=== PATIENT | female | born 1960 | race Caucasian/White ===

== ENCOUNTER 2018-05-18 09:14 | Emergency (ER) | payer MEDICARE, MEDICAID ==
[2018-05-18 09:40] VITALS: BP 106/45
--- NOTE | 2018-05-18 10:02 | EDM.PDOC ---
ED HPI GENERAL MEDICAL PROBLEM - General Chief Complaint: Skin Complaint Stated Complaint: POSSIBLE ALLERGIC REACTION Time Seen by Provider: 05/18/18 09:45 Source of Information: Reports: Patient, Family, Old Records History Limitations: Reports: Other (Patient has Down's syndrome, minimally able to provide hx) - History of Present Illness INITIAL COMMENTS - FREE TEXT/NARRATIVE: 57 yo female was taken to the clinic for isolated facial redness/puffiness. She was tx'd with a Kenalog injection and asked to double the dose of her cetirizine. She is not better today so the family brought her to the ER. There has not been itching, wheezing, a voice change, or hives. No hx of the same. There may be a new lotion that has been applied to the face when questioned. 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) (See HPI) - Related Data Allergies Allergy/AdvReac Type Severity Reaction Status Date / Time quinine Allergy Severe Airway Verified 05/18/18 09:40 Tightness Home Meds: Home Meds Alendronate Sodium [Fosamax] 70 mg PO Q7D 02/24/18 [History] Calcium Carbonate/Vitamin D3 [Calcium 600 + D3 Softgel] 1 each PO BID 02/24/18 [ History] Cetirizine [ZyrTEC] 10 mg PO DAILY 02/24/18 [History] Cholecalciferol (Vitamin D3) [Vitamin D3] 2,000 unit PO DAILY 02/24/18 [History] DULoxetine [Cymbalta] 60 mg PO DAILY 02/24/18 [History] Ferrous Sulfate 325 mg PO DAILY 02/24/18 [History] Levothyroxine [Synthroid] 88 mcg PO ACBREAKFAST 02/24/18 [History] Magnesium Oxide [Magnesium] 2 tab PO DAILY 02/24/18 [History] Multivitamin-Min/Iron/FA/Vit K [Multi-Day Plus Minerals Tablet] 1 each PO DAILY 02/24/18 [History] Naproxen 500 mg PO BID 02/24/18 [History] Nystatin [Nystatin Ointment] 1 applic TOP BID 02/24/18 [History] [place]-3/DHA/Epa/Fish Oil [[place]-3 Fish Oil 1,200 MG Sfgl] 1,200 mg PO DAILY 04/13 [History] Ranitidine HCl [Zantac] 150 mg PO BID 02/24/18 [History] Triamcinolone Acetonide [Triamcinolone Acetonide 0.1% Crm] 1 applic TOP BID 04/13 [History] Past Medical History HEENT History: Reports: Impaired Vision Other Respiratory History: Sleep apnea Other Neuro History: Obsessive slowness disorder, Downs Syndrome Other Endocrine/Metabolic History: Low bone density Dermatologic History: Reports: Psoriasis Other Dermatologic History: Psoriasis - Past Surgical History Other Musculoskeletal Surgeries/Procedures:: Restless leg syndrome Social & Family History - Tobacco Use Smoking Status *Q: Never Smoker - Recreational Drug Use Recreational Drug Use: No ED ROS GENERAL - Review of Systems Review Of Systems: See Below Constitutional: Reports: No Symptoms HEENT: Reports: No Symptoms Respiratory: Reports: No Symptoms Cardiovascular: Reports: No Symptoms Endocrine: Reports: No Symptoms GI/Abdominal: Reports: No Symptoms : Reports: No Symptoms Musculoskeletal: Reports: No Symptoms Skin: Reports: Erythema (of face only with some puffiness) Neurological: Reports: No Symptoms ED EXAM, SKIN/RASH Exam: See Below Exam Limited By: No Limitations General Appearance: Alert, WD/WN, No Apparent Distress Eye Exam: Bilateral Eye: Normal Inspection Ears: Normal External Exam, Normal Canal, Hearing Grossly Normal, Normal TMs Nose: Normal Inspection, No Blood Throat/Mouth: Normal Inspection, Normal Lips, Normal Oropharynx, Normal Voice, No Airway Compromise Head: Atraumatic, Normocephalic Neck: Normal Inspection Respiratory/Chest: No Respiratory Distress, Lungs Clear, Normal Breath Sounds, No Accessory Muscle Use Cardiovascular: Regular Rate, Rhythm, No Edema Extremities: Normal Inspection, Normal Range of Motion, Non-Tender, No Pedal Edema Neurological: Alert, CN II-XII Intact, No Motor/Sensory Deficits Psychiatric: Normal Affect, Normal Mood Skin: Warm, Dry, Intact, Erythema (of face only with some eye lid puffiness.). No: Increased Warmth, Lymphangitis, Wound/Incision, Zoster-Like Rash Location, Skin: Face. No: Head, Neck, Generalized Characteristics: Macular, Confluent, Erythematous. No: Papular, Maculopapular, Fine, Urticarial Associated features: Swelling, Induration. No: Warmth, Tenderness, Scaling, Lymphangitis Course - Vital Signs Last Recorded V/S: Last Vital Signs Temp 37.3 C 05/18/18 09:38 Pulse 90 05/18/18 09:38 Resp 16 05/18/18 09:38 BP 106/45 L 05/18/18 09:38 Pulse Ox 100 05/18/18 09:38 Departure - Departure Time of Disposition: 10:05 Disposition: Home, Self-Care 01 Condition: Good Clinical Impression: Contact dermatitis Qualifiers: Contact dermatitis type: unspecified Contact dermatitis trigger: other chemical product Qualified Code(s): L25.3 - Unspecified contact dermatitis due to other chemical products - Discharge Information *PRESCRIPTION DRUG MONITORING PROGRAM REVIEWED*: No *COPY OF PRESCRIPTION DRUG MONITORING REPORT IN PATIENT BERTHA: No Instructions: Contact Dermatitis Referrals: Vic Beaver MD [Primary Care Provider] - Additional Instructions: Discontinue any facial products until rash is completely gone. Try to avoid reapplication of the offending product. Take prednisone as directed until gone. Recheck in the clinic as needed.
== END 2018-05-18 10:28 | disposition home or self-care (01) ==
LOC: JP.ED 09:14
DX: L25.3 Unspecified contact dermatitis due to other chemical products (principal); Z79.899 Other long term (current) drug therapy; Z88.8 Allergy status to other drugs, medicaments and biological substances
CPT/HCPCS: 99282; 99283

== ENCOUNTER 2019-02-10 11:03 | Inpatient (IN) | payer MEDICARE, MEDICAID ==
[2019-02-10] MEDS ORDERED: Albuterol 0.083% 2.5 MG/3 ML Neb Soln NEB PRN (12:02)
[2019-02-10] MEDS ORDERED: Ibuprofen 600 MG Tab PO PRN (12:02)
[2019-02-10] MEDS ORDERED: Ondansetron 4 MG Tab.DIS PO PRN (12:02)
[2019-02-10] MEDS ORDERED: Magnesium Hydroxide 400 MG/5 ML Susp 30 ML Cup PO PRN (12:02)
[2019-02-10] MEDS ORDERED: Ondansetron 4 MG/2 ML SDV IV PRN (12:02)
[2019-02-10] MEDS ORDERED: Sodium Chloride 0.9% 1,000 ML IV SCH (12:15)
[2019-02-10] MEDS: Acetaminophen 325 MG Tab PO PRN (13:00)
[2019-02-10] MEDS: Sodium Chloride 0.9% 1,000 ML IV SCH (13:18)
[2019-02-10] MEDS: cefTRIAXone 1 GM in Sodium Chloride 0.9% 50 ML IV SCH (13:18)
--- NOTE | 2019-02-10 13:20 | PCM.HP.2 ---
H&P History of Present Illness - General Date of Service: 02/10/19 Admit Problem/Dx: Admission Diagnosis/Problem Admission Diagnosis/Problem Cellulitis of leg Source of Information: Patient, Provider, Other (custodial staff) - History of Present Illness Initial Comments - Free Text/Narative: CC: fever HPI: Iva presents to the hospital as a direct admission from Dr. Beaver's clinic. 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 Her care provider reports that she did not feel well yesterday and was weak and tired. There may have been some hallucinations and while she was at work they noted that she was more emotional and tearful than usual. She slept longer than expected this morning and did have a fever of greater than 101 this morning as well. Staff noted a large area of redness, warmth over her right anterior thigh that was not present yesterday. They brought her to the clinic for evaluation where she had a temperature greater than 102 degrees. Patient does not report shortness of breath or chest pain. No complaints of nausea or abdominal pain. Bowels have been moving normally. No change in bladder habits. She does report some pain in the right thigh but has difficulty further elaborating on the pain. No obvious sick contacts that she is aware of. She has also mentioned some achy lower back pain which is mild to moderate. She has not taken anything to make it feel better. No obvious triggers to make it worse. Appetite and intake have been decreased. - Related Data Allergies/Adverse Reactions: Allergies Allergy/AdvReac Type Severity Reaction Status Date / Time quinine Allergy Severe Airway Verified 05/18/18 09:40 Tightness pollen extracts Allergy Difficulty Verified 01/12/19 19:29 Breathing Home Medications: Home Meds Alendronate Sodium [Fosamax] 70 mg PO Q7D 02/24/18 [History] Cetirizine [ZyrTEC] 10 mg PO DAILY 02/24/18 [History] DULoxetine [Cymbalta] 90 mg PO DAILY 02/24/18 [History] Ferrous Sulfate 325 mg PO BID 02/24/18 [History] Levothyroxine [Synthroid] 88 mcg PO ACBREAKFAST 02/24/18 [History] Magnesium Oxide [Magnesium] 1 tab PO BID 02/24/18 [History] Multivitamin-Min/Iron/FA/Vit K [Multi-Day Plus Minerals Tablet] 1 each PO DAILY 02/24/18 [History] [place]-3/DHA/Epa/Fish Oil [[place]-3 Fish Oil 1,200 MG Sfgl] 1,200 mg PO DAILY 04/13 [History] OLANZapine [Olanzapine] 2.5 mg PO DAILY 01/12/19 [History] Past Medical History HEENT History: Reports: Impaired Vision Other Respiratory History: Sleep apnea Musculoskeletal History: Reports: Osteoporosis Neurological History: Reports: Other (See Below) Other Neuro History: Obsessive slowness disorder, Downs Syndrome Psychiatric History: Reports: Anxiety Endocrine/Metabolic History: Reports: Hypothyroidism Other Endocrine/Metabolic History: Low bone density Dermatologic History: Reports: Psoriasis Other Dermatologic History: Psoriasis - Past Surgical History Other Musculoskeletal Surgeries/Procedures:: Restless leg syndrome Social & Family History - Family History Cardiac: Denies: CAD - Tobacco Use Smoking Status *Q: Never Smoker - Caffeine Use Caffeine Use: Reports: Soda - Recreational Drug Use Recreational Drug Use: No H&P Review of Systems - Review of Systems: Review Of Systems: See Below Free Text/Narrative: A complete 12 point review of systems was obtained. Pertinent positives and negatives are noted in the history of present illness. All other systems were reviewed and were negative except as noted. Exam - Exam Exam: See Below - Vital Signs Vital Signs: Last Vital Signs Temp 38.4 C H 02/10/19 13:00 Pulse 89 02/10/19 12:02 Resp 16 02/10/19 12:02 BP 101/56 L 02/10/19 12:02 Pulse Ox 98 02/10/19 12:02 Weight: 52.072 kg - Exam Quality Assessment: No: Supplemental Oxygen General: Alert, Cooperative. No: Mild Distress HEENT: Conjunctiva Clear. No: Mucosa Moist & [place] (dry), Scleral Icterus Neck: Supple, Trachea Midline. No: Lymphadenopathy Lungs: Clear to Auscultation, Normal Respiratory Effort Cardiovascular: Regular Rate, Regular Rhythm. No: Systolic Murmur GI/Abdominal Exam: Normal Bowel Sounds, Soft, No Distention, Tender (Very mild left lateral abdominal pain) Back Exam: Normal Inspection, Full Range of Motion Extremities: No Pedal Edema. No: Increased Warmth Peripheral Pulses: 2+: Dorsalis Pedis (L), Dorsalis Pedis (R) Skin: Warm, Dry Neuro Extensive - Mental Status: Alert, Slow Response to Commands Neuro Extensive - Motor, Sensory, Reflexes: No: Dysarthria, Abnormal Motor, Tremor Psychiatric: Alert, Normal Affect - Patient Data Lab Results Last 24 hrs: Laboratory Results - last 24 hr 02/10/19 02/10/19 02/10/19 Range/Units 11:50 12:00 12:00 WBC 15.5 H (4.5-11.0) K/uL RBC 3.26 L (3.30-5.50) M/uL Hgb 10.3 L D (12.0-15.0) g/dL Hct 32.5 L (36.0-48.0) % MCV 100 H (80-98) fL MCH 32 H (27-31) pg MCHC 32 (32-36) % Plt Count 240 (150-400) K/uL Add Manual Diff Yes Neutrophils % (Manual) 86 H (36-66) % Band Neutrophils % 2 L (5-11) % Lymphocytes % (Manual) 6 L (24-44) % Monocytes % (Manual) 6 (2-6) % Sodium 136 L (140-148) mmol/L Potassium 4.1 (3.6-5.2) mmol/L Chloride 101 (100-108) mmol/L Carbon Dioxide 24 (21-32) mmol/L Anion Gap 15.1 H (5.0-14.0) mmol/L BUN 18 (7-18) mg/dL Creatinine 1.7 H (0.6-1.0) mg/dL Est Cr Clr Drug Dosing TNP Estimated GFR (MDRD) 31 L (>60) Glucose 161 H (74-106) mg/dL Lactic Acid 1.8 (0.4-2.0) mmol/L Calcium 8.4 L (8.5-10.1) mg/dL Total Bilirubin 0.4 (0.2-1.0) mg/dL AST 50 H D (15-37) U/L ALT 63 D (12-78) U/L Alkaline Phosphatase 175 H D (46-116) U/L Total Protein 6.6 (6.4-8.2) g/dL Albumin 2.2 L (3.4-5.0) g/dL Globulin 4.4 H (2.3-3.5) g/dL Albumin/Globulin Ratio 0.5 L (1.2-2.2) Result Diagrams: 02/10/19 12:00 02/10/19 12:00 Sepsis Event Note - Evaluation Sepsis Screening Result: No Definite Risk - Focused Exam Vital Signs: Vital Signs Temp Temp Pulse Resp BP Pulse Ox Pulse Ox 02/10/19 13:00 38.4 C H 02/10/19 12:02 38.4 C H 89 16 101/56 L 95 98 Date Exam was Performed: 02/10/19 Time Exam was Performed: 13:14 *Q Meaningful Use (ADM) - VTE Risk Assess *Q Each Risk Factor Represents 1 Point: Age 41 - 59 years Total Score 1 Point Risk Factors: 1 Each Risk Factor Represents 2 Points: None Total Score 2 Point Risk Factors: 0 Each Risk Factor Represents 3 Points: None Total Score 3 Point Risk Factors: 0 Each Risk Factor Represents 5 Points: None Total Score 5 Point Risk Factors: 0 Venous Thromboembolism Risk Factor Score *Q: 1 - Problem List (1) Cellulitis of right leg without foot SNOMED Code(s): 301205617 ICD Code: L03.115 - CELLULITIS OF RIGHT LOWER LIMB Status: Acute Current Visit: Yes (2) Acute kidney injury SNOMED Code(s): 07028932, 02020519 ICD Code: N17.9 - ACUTE KIDNEY FAILURE, UNSPECIFIED Status: Acute Current Visit: No Problem List Initiated/Reviewed/Updated: Yes Orders Last 24hrs: Active Orders 24 hr Category Date Time Status Patient Status [ADT] Routine ADT 02/10/19 12:02 Active Antiembolic Devices [RC] .Routine Care 02/10/19 12:02 Active Intake and Output [RC] QSHIFT Care 02/10/19 12:02 Active Notify Provider Vital Signs [RC] ASDIRECTED Care 02/10/19 12:02 Active Oxygen Therapy [RC] PRN Care 02/10/19 12:02 Active RT Aerosol Therapy [RC] ASDIRECTED Care 02/10/19 12:05 Active Up With Assistance [RC] ASDIRECTED Care 02/10/19 12:02 Active VTE/DVT Education [RC] Per Unit Routine Care 02/10/19 12:02 Active Vital Signs [RC] Q4H Care 02/10/19 12:02 Active Regular Diet [DIET] Diet 02/10/19 Dinner Active BASIC METABOLIC PANEL,BMP [CHEM] AM Lab 02/11/19 05:11 Ordered CBC W/O DIFF,HEMOGRAM [HEME] AM Lab 02/11/19 05:11 Ordered CULTURE BLOOD [BC] Urgent Lab 02/10/19 11:50 Received CULTURE BLOOD [BC] Urgent Lab 02/10/19 12:00 Received UA W/MICROSCOPIC [URIN] Routine Lab 02/10/19 11:39 Ordered Acetaminophen [Tylenol] Med 02/10/19 12:02 Active 650 mg PO Q4H PRN Albuterol [Proventil Neb Soln] Med 02/10/19 12:02 Active 2.5 mg NEB Q4H PRN Cetirizine [ZyrTEC] Med 02/11/19 09:00 Ordered 10 mg PO DAILY DULoxetine [Cymbalta] Med 02/11/19 09:00 Ordered 90 mg PO DAILY Docusate Sodium/Sennosides [Senna Plus] Med 02/10/19 12:02 Active 1 tab PO BID PRN Ibuprofen [Motrin] Med 02/10/19 12:02 Active 600 mg PO Q6H PRN Lactobacillus Rhamnosus GG [Culturelle] Med 02/10/19 21:00 Active 1 cap PO BID Levothyroxine [Synthroid] Med 02/11/19 07:30 Ordered 88 mcg PO ACBREAKFAST Magnesium Hydroxide [Milk of Magnesia] Med 02/10/19 12:02 Active 30 ml PO Q12H PRN Magnesium Oxide [Magnesium] Med 02/10/19 21:00 Ordered 1 tab PO BID Melatonin Med 02/10/19 21:00 Active 9 mg PO BEDTIME OLANZapine [Olanzapine] Med 02/11/19 09:00 Ordered 2.5 mg PO DAILY Ondansetron [Zofran ODT] Med 02/10/19 12:02 Active 4 mg PO Q6H PRN Ondansetron [Zofran] Med 02/10/19 12:02 Active 4 mg IV Q6H PRN Sodium Chloride 0.9% [Normal Saline] 1,000 ml Med 02/10/19 12:15 Active IV .BOLUS Sodium Chloride 0.9% [Normal Saline] 1,000 ml Med 02/10/19 12:15 Active IV ASDIRECTED cefTRIAXone [Rocephin] 1 gm Med 02/10/19 13:00 Active Sodium Chloride 0.9% [Normal Saline] 50 ml IV Q24H Blood Culture x2 Reflex Set [OM.PC] Urgent Oth 02/10/19 11:38 Ordered Sequential Compression Device [OM.PC] Routine Oth 02/10/19 12:02 Ordered Resuscitation Status Routine Resus Stat 02/10/19 12:02 Ordered Medication Orders Acetaminophen (Tylenol) 650 mg PO Q4H PRN PRN Reason: Pain (Mild 1-3)/fever Last Admin: 02/10/19 13:00 Dose: 650 mg Albuterol (Proventil Neb Soln) 2.5 mg NEB Q4H PRN PRN Reason: Shortness Of Breath/wheezing Ceftriaxone Sodium 1 gm/ (Sodium Chloride) 50 mls @ 100 mls/hr IV Q24H DANIKA Sodium Chloride (Normal Saline) 1,000 mls @ 125 mls/hr IV ASDIRECTED DANIKA Sodium Chloride (Normal Saline) 1,000 mls @ 999 mls/hr IV .BOLUS DANIKA Stop: 02/10/19 13:16 Ibuprofen (Motrin) 600 mg PO Q6H PRN PRN Reason: Mild Pain(1-3)/Fever Lactobacillus Rhamnosus (Culturelle) 1 cap PO BID DANIKA Magnesium Hydroxide (Milk Of Magnesia) 30 ml PO Q12H PRN PRN Reason: Constipation Melatonin (Melatonin) 9 mg PO BEDTIME DANIKA Ondansetron HCl (Zofran Odt) 4 mg PO Q6H PRN PRN Reason: Nausea able to take PO Ondansetron HCl (Zofran) 4 mg IV Q6H PRN PRN Reason: Nausea/Vomiting Senna/Docusate Sodium (Senna Plus) 1 tab PO BID PRN PRN Reason: Constipation Assessment/Plan Comment:: ASSESSMENT AND PLAN - Cellulitis of the right thigh-likely source for her fever. Very small area of skin break on the anterior thigh consistent with very small abrasion. No evidence for sepsis at this time though the patient does have some delirium related to the infection. She has a high fever and is weak and not safe for outpatient management at this time. -IV ceftriaxone -Blood cultures -IV fluids -Pain control Acute kidney injury-creatinine is 1.7 with baseline below 1. Likely related to infection and intravascular volume depletion. -IV fluids and repeat labs in the morning Maintenance issues - - DVT prophylaxis -mechanical - GI prophylaxis -not indicated - Nutrition -regular - Esteban catheter -not indicated CODE STATUS -full code Admission justification -this patient will be admitted for inpatient services and is medically appropriate meeting medical necessity for inpatient admission as outlined in my documentation. I reasonably expect the patient will require inpatient services that span a period time over 2 midnights. I reasonably expect this patient to be discharged or transferred within 96 hours after admission to the [facility]. Disposition -I would anticipate discharge back to her custodial after the hospital stay Primary care physician -Dr. Sd Conway M.D. - Mortality Measure Prognosis:: Good
[2019-02-10] MEDS ORDERED: Sodium Chloride 0.9% 1,000 ML IV ONE (18:00)
[2019-02-10] MEDS: Lactobacillus Rhamnosus GG (Probiotic) Cap PO SCH (20:18)
[2019-02-10] MEDS: Magnesium Oxide 400 MG Tab PO SCH (20:18)
[2019-02-10] MEDS: Melatonin 3 MG Tab PO SCH (20:19)
[2019-02-11] MEDS: Sodium Chloride 0.9% 1,000 ML IV SCH (07:47)
[2019-02-11] MEDS: Levothyroxine 88 MCG Tab PO SCH (07:49)
[2019-02-11] MEDS: DULoxetine 30 MG Cap PO SCH (08:19)
[2019-02-11] MEDS: Magnesium Oxide 400 MG Tab PO SCH ×2 (08:19→20:20)
[2019-02-11] MEDS: Lactobacillus Rhamnosus GG (Probiotic) Cap PO SCH ×2 (08:19→20:20)
[2019-02-11] MEDS: Cetirizine 10 MG Tab PO SCH (08:19)
[2019-02-11] MEDS: OLANZapine 5 MG Tab PO SCH (08:19)
--- NOTE | 2019-02-11 09:49 | PCM.PN ---
- General Info Date of Service: 02/11/19 Subjective Update: No acute events overnight. Blood pressure was on the low side at 1 point and she did receive an additional fluid bolus. Blood pressures have been good since then. No fevers since admission. Patient says she feels a little better today. Appetite was good. No nausea or vomiting. Functional Status: Reports: Pain Controlled, Tolerating Diet - Review of Systems General: Reports: Weakness Skin: Reports: Rash - Patient Data Vitals - Most Recent: Last Vital Signs Temp 35.4 C 02/11/19 07:00 Pulse 68 02/11/19 07:00 Resp 16 02/11/19 07:00 BP 100/64 02/11/19 07:00 Pulse Ox 96 02/11/19 07:00 Weight - Most Recent: 52.072 kg I&O - Last 24 Hours: Intake & Output 02/10/19 02/11/19 02/11/19 22:59 06:59 14:59 Intake Total 2939 Output Total 250 50 Balance 2689 -50 Lab Results Last 24 Hours: Laboratory Results - last 24 hr 02/10/19 02/10/19 02/10/19 Range/Units 11:50 12:00 12:00 WBC 15.5 H (4.5-11.0) K/uL RBC 3.26 L (3.30-5.50) M/uL Hgb 10.3 L D (12.0-15.0) g/dL Hct 32.5 L (36.0-48.0) % MCV 100 H (80-98) fL MCH 32 H (27-31) pg MCHC 32 (32-36) % Plt Count 240 (150-400) K/uL Add Manual Diff Yes Neutrophils % (Manual) 86 H (36-66) % Band Neutrophils % 2 L (5-11) % Lymphocytes % (Manual) 6 L (24-44) % Monocytes % (Manual) 6 (2-6) % Sodium 136 L (140-148) mmol/L Potassium 4.1 (3.6-5.2) mmol/L Chloride 101 (100-108) mmol/L Carbon Dioxide 24 (21-32) mmol/L Anion Gap 15.1 H (5.0-14.0) mmol/L BUN 18 (7-18) mg/dL Creatinine 1.7 H (0.6-1.0) mg/dL Est Cr Clr Drug Dosing TNP Estimated GFR (MDRD) 31 L (>60) Glucose 161 H (74-106) mg/dL Lactic Acid 1.8 (0.4-2.0) mmol/L Calcium 8.4 L (8.5-10.1) mg/dL Total Bilirubin 0.4 (0.2-1.0) mg/dL AST 50 H D (15-37) U/L ALT 63 D (12-78) U/L Alkaline Phosphatase 175 H D (46-116) U/L Total Protein 6.6 (6.4-8.2) g/dL Albumin 2.2 L (3.4-5.0) g/dL Globulin 4.4 H (2.3-3.5) g/dL Albumin/Globulin Ratio 0.5 L (1.2-2.2) Urine Color (YELLOW) Urine Appearance (CLEAR) Urine pH (5.0-8.0) Ur Specific Nursery (1.008-1.030) Urine Protein (NEGATIVE) mg/dL Urine Glucose (UA) (NEGATIVE) mg/dL Urine Ketones (NEGATIVE) mg/dL Urine Occult Blood (NEGATIVE) Urine Nitrite (NEGATIVE) Urine Bilirubin (NEGATIVE) Urine Urobilinogen (0.2-1.0) EU/dL Ur Leukocyte Esterase (NEGATIVE) Urine RBC (0-5) Urine WBC (0-5) Ur Epithelial Cells Amorphous Sediment Urine Bacteria Urine Mucus 02/10/19 02/11/19 02/11/19 Range/Units 16:33 04:24 04:24 WBC 7.1 (4.5-11.0) K/uL RBC 2.84 L (3.30-5.50) M/uL Hgb 8.7 L (12.0-15.0) g/dL Hct 28.8 L (36.0-48.0) % MCV 101 H (80-98) fL MCH 31 (27-31) pg MCHC 30 L (32-36) % Plt Count 184 (150-400) K/uL Add Manual Diff Neutrophils % (Manual) (36-66) % Band Neutrophils % (5-11) % Lymphocytes % (Manual) (24-44) % Monocytes % (Manual) (2-6) % Sodium 140 (140-148) mmol/L Potassium 4.0 (3.6-5.2) mmol/L Chloride 109 H (100-108) mmol/L Carbon Dioxide 23 (21-32) mmol/L Anion Gap 12.0 (5.0-14.0) mmol/L BUN 19 H (7-18) mg/dL Creatinine 1.3 H (0.6-1.0) mg/dL Est Cr Clr Drug Dosing 34.29 Estimated GFR (MDRD) 42 L (>60) Glucose 112 H (74-106) mg/dL Lactic Acid (0.4-2.0) mmol/L Calcium 7.0 L D (8.5-10.1) mg/dL Total Bilirubin (0.2-1.0) mg/dL AST (15-37) U/L ALT (12-78) U/L Alkaline Phosphatase (46-116) U/L Total Protein (6.4-8.2) g/dL Albumin (3.4-5.0) g/dL Globulin (2.3-3.5) g/dL Albumin/Globulin Ratio (1.2-2.2) Urine Color Dougherty A (YELLOW) Urine Appearance Slightly cloudy A (CLEAR) Urine pH 7.0 (5.0-8.0) Ur Specific Nursery 1.015 (1.008-1.030) Urine Protein Trace H (NEGATIVE) mg/dL Urine Glucose (UA) Negative (NEGATIVE) mg/dL Urine Ketones Negative (NEGATIVE) mg/dL Urine Occult Blood Negative (NEGATIVE) Urine Nitrite Negative (NEGATIVE) Urine Bilirubin Negative (NEGATIVE) Urine Urobilinogen 0.2 (0.2-1.0) EU/dL Ur Leukocyte Esterase Small H (NEGATIVE) Urine RBC Not seen (0-5) Urine WBC 5-10 H (0-5) Ur Epithelial Cells Many Amorphous Sediment Few Urine Bacteria Not seen Urine Mucus Not seen Med Orders - Current: Current Medications Acetaminophen (Tylenol) 650 mg PO Q4H PRN PRN Reason: Pain (Mild 1-3)/fever Last Admin: 02/10/19 13:00 Dose: 650 mg Albuterol (Proventil Neb Soln) 2.5 mg NEB Q4H PRN PRN Reason: Shortness Of Breath/wheezing Cetirizine HCl (Zyrtec) 10 mg PO DAILY [facility]ANIKA Last Admin: 02/11/19 08:19 Dose: 10 mg Duloxetine HCl (Cymbalta) 90 mg PO DAILY [facility] Last Admin: 02/11/19 08:19 Dose: 90 mg Ceftriaxone Sodium 1 gm/ (Sodium Chloride) 50 mls @ 100 mls/hr IV Q24H [facility] Last Admin: 02/10/19 13:18 Dose: 100 mls/hr Ibuprofen (Motrin) 600 mg PO Q6H PRN PRN Reason: Mild Pain(1-3)/Fever Last Admin: 02/10/19 20:16 Dose: 600 mg Lactobacillus Rhamnosus (Culturelle) 1 cap PO BID [facility] Last Admin: 02/11/19 08:19 Dose: 1 cap Levothyroxine Sodium (Synthroid) 88 mcg PO ACBREAKFAST [facility] Last Admin: 02/11/19 07:49 Dose: 88 mcg Magnesium Hydroxide (Milk Of Magnesia) 30 ml PO Q12H PRN PRN Reason: Constipation Magnesium Oxide (Magnesium Oxide) 400 mg PO BID [facility] Last Admin: 02/11/19 08:19 Dose: 400 mg Melatonin (Melatonin) 9 mg PO BEDTIME [facility] Last Admin: 02/10/19 20:19 Dose: 9 mg Olanzapine (Zyprexa) 2.5 mg PO DAILY [facility] Last Admin: 02/11/19 08:19 Dose: 2.5 mg Ondansetron HCl (Zofran Odt) 4 mg PO Q6H PRN PRN Reason: Nausea able to take PO Ondansetron HCl (Zofran) 4 mg IV Q6H PRN PRN Reason: Nausea/Vomiting Senna/Docusate Sodium (Senna Plus) 1 tab PO BID PRN PRN Reason: Constipation Triamcinolone Acetonide (Triamcinolone Acetonide 0.1% Crm) 1 gm TOP BEDTIME [facility] Discontinued Medications Sodium Chloride (Normal Saline) 1,000 mls @ 125 mls/hr IV ASDIRECTED [facility] Last Admin: 02/11/19 07:47 Dose: 125 mls/hr Sodium Chloride (Normal Saline) 1,000 mls @ 999 mls/hr IV .BOLUS DANIKA Stop: 02/10/19 13:16 Last Admin: 02/10/19 17:28 Dose: 999 mls/hr Sodium Chloride (Normal Saline) 1,000 mls @ 500 mls/hr IV .BOLUS ONE Stop: 02/10/19 19:59 Last Admin: 02/10/19 18:00 Dose: 500 mls/hr - Exam Quality Assessment: No: Supplemental Oxygen General: Alert, Oriented, Cooperative, No Acute Distress Lungs: Normal Respiratory Effort Cardiovascular: Regular Rate, Regular Rhythm GI/Abdominal Exam: Soft, No Distention Extremities: No Pedal Edema Skin: Warm, Dry, Rash (erythema and mild warmth right anterior thigh ) Psy/Mental Status: Alert, Normal Affect Sepsis Event Note - Evaluation Sepsis Screening Result: No Definite Risk - Focused Exam Vital Signs: Vital Signs Temp Pulse Resp BP Pulse Ox 02/11/19 07:00 35.4 C 68 16 100/64 96 02/11/19 04:21 35.5 C 73 16 93/50 L 96 02/10/19 23:00 35.7 C 65 16 90/50 L 95 Date Exam was Performed: 02/11/19 Time Exam was Performed: 10:59 - Problem List & Annotations (1) Cellulitis of right leg without foot SNOMED Code(s): 942921761 Code(s): L03.115 - CELLULITIS OF RIGHT LOWER LIMB Status: Acute Current Visit: Yes (2) Acute kidney injury SNOMED Code(s): 90078731, 87419429 Code(s): N17.9 - ACUTE KIDNEY FAILURE, UNSPECIFIED Status: Resolved Current Visit: No - Problem List Review Problem List Initiated/Reviewed/Updated: Yes - My Orders Last 24 Hours: My Active Orders 02/10/19 11:38 Blood Culture x2 Reflex Set [OM.PC] Urgent 02/10/19 11:50 CULTURE BLOOD [BC] Urgent 02/10/19 12:00 CULTURE BLOOD [BC] Urgent 02/10/19 12:02 Patient Status [ADT] Routine Antiembolic Devices [RC] .Routine Intake and Output [RC] QSHIFT Notify Provider Vital Signs [RC] ASDIRECTED Oxygen Therapy [RC] PRN Up With Assistance [RC] ASDIRECTED VTE/DVT Education [RC] Per Unit Routine Vital Signs [RC] Q4H Acetaminophen [Tylenol] 650 mg PO Q4H PRN Albuterol [Proventil Neb Soln] 2.5 mg NEB Q4H PRN Docusate Sodium/Sennosides [Senna Plus] 1 tab PO BID PRN Ibuprofen [Motrin] 600 mg PO Q6H PRN Magnesium Hydroxide [Milk of Magnesia] 30 ml PO Q12H PRN Ondansetron [Zofran ODT] 4 mg PO Q6H PRN Ondansetron [Zofran] 4 mg IV Q6H PRN Sequential Compression Device [OM.PC] Routine Resuscitation Status Routine 02/10/19 12:05 RT Aerosol Therapy [RC] ASDIRECTED 02/10/19 13:00 cefTRIAXone [Rocephin] 1 gm Sodium Chloride 0.9% [Normal Saline] 50 ml IV Q24H 02/10/19 21:00 Lactobacillus Rhamnosus GG [Culturelle] 1 cap PO BID Magnesium Oxide 400 mg PO BID Melatonin 9 mg PO BEDTIME 02/10/19 Dinner Regular Diet [DIET] 02/11/19 07:30 Levothyroxine [Synthroid] 88 mcg PO ACBREAKFAST 02/11/19 09:00 Cetirizine [ZyrTEC] 10 mg PO DAILY DULoxetine [Cymbalta] 90 mg PO DAILY OLANZapine [ZyPREXA] 2.5 mg PO DAILY 02/11/19 21:00 Triamcinolone Acetonide [Triamcinolone Acetonide 0.1% Crm] 1 gm TOP BEDTIME 02/12/19 05:00 BASIC METABOLIC PANEL,BMP [CHEM] Timed CBC W/O DIFF,HEMOGRAM [HEME] Timed (1) - Plan Plan:: ASSESSMENT AND PLAN - Cellulitis of the right thigh-clinically improving. No fever since admission. Rash seems to be decreasing. -Continue IV ceftriaxone -follow-upBlood cultures -Saline lock IV fluids -Pain control Acute kidney injury-creatinine has improved with hydration. -repeat labs in the morning Maintenance issues - - DVT prophylaxis -mechanical - GI prophylaxis -not indicated - Nutrition -regular Disposition -I would anticipate discharge back to her residential after the hospital stay Primary care physician -Dr. Sd Conway M.D.
[2019-02-11] MEDS: cefTRIAXone 1 GM in Sodium Chloride 0.9% 50 ML IV SCH (13:21)
[2019-02-11] MEDS: Melatonin 3 MG Tab PO SCH (20:20)
[2019-02-11] MEDS: Acetaminophen 325 MG Tab PO PRN (20:27)
[2019-02-11] MEDS ORDERED: Triamcinolone Acetonide 0.1% Crm 15 GM Tube TOP SCH (21:00)
[2019-02-12] MEDS: Magnesium Oxide 400 MG Tab PO SCH (08:28)
[2019-02-12] MEDS: DULoxetine 30 MG Cap PO SCH (08:28)
[2019-02-12] MEDS: Levothyroxine 88 MCG Tab PO SCH (08:28)
[2019-02-12] MEDS: Cetirizine 10 MG Tab PO SCH (08:28)
[2019-02-12] MEDS: Lactobacillus Rhamnosus GG (Probiotic) Cap PO SCH (08:28)
[2019-02-12] MEDS: OLANZapine 5 MG Tab PO SCH (08:29)
--- NOTE | 2019-02-12 11:07 | PCM.DCSUM1 ---
Discharge Summary - Hospital Course Brief History: 58-year-old female with history of recent gastrointestinal hemorrhage who presented as a direct admission from the clinic for management of cellulitis of the right thigh. Diagnosis: Stroke: No - Discharge Data Discharge Date: 02/12/19 Discharge Disposition: Home, Self-Care 01 Condition: Good - Referral to Home Health Primary Care Physician: Vic Beaver MD - Discharge Diagnosis/Problem(s) (1) Cellulitis of right leg without foot SNOMED Code(s): 753131092 ICD Code: L03.115 - CELLULITIS OF RIGHT LOWER LIMB Status: Acute Current Visit: Yes (2) Acute kidney injury SNOMED Code(s): 92674820, 27809184 ICD Code: N17.9 - ACUTE KIDNEY FAILURE, UNSPECIFIED Status: Resolved Current Visit: No - Patient Summary/Data Hospital Course: Iva presented as a direct admission from clinic. She initially presented there with fever, weakness and increased confusion. She was sent to the hospital for direct admission and management of cellulitis. Laboratory studies obtained at the time of admission revealed leukocytosis and acute kidney injury with a creatinine of 1.7. She was empirically started on ceftriaxone for management of the cellulitis and also cover urinary pathogens with a history of urinary tract infections. Urinalysis was collected after admission and did not strongly suggest infection. Over the next 2 days she did show clinical improvement. Temperatures have been normal for 24 hours. Her white blood cell count has been normal for the past 2 days after a mild leukocytosis was noted at the time of admission. The redness and warmth of her right thigh has improved dramatically during the hospital stay. There is a small area of erythema remaining in the lower lateral aspect of the thigh. She has been tolerating her diet and oral intake has been good. I believe she is safe for outpatient management at this time. She has had 3 days of IV antibiotics and will receive 7 additional days of oral antibiotics after hospital discharge. Her kidney function has improved steadily through the hospital stay and her creatinine is down to 1.7 at the time of discharge. - Patient Instructions Diet: Regular Diet as Tolerated Activity: As Tolerated Showering/Bathing: May Shower Notify Provider of: Fever, Increased Pain Other/Special Instructions: 1. You were in the hospital for management of cellulitis of the right thigh. Your condition has been improving with antibiotic therapy. I do recommend ongoing antibiotic therapy with cefdinir ( Omnicef). Please take 300 mg twice daily with food. Your first dose outside of the hospital will be due on Thursday morning. 2. Continue your other home medications as previously prescribed. 3. Follow up with Dr. Beaver in about 1 week to ensure that you are continuing to improve. - Discharge Plan *PRESCRIPTION DRUG MONITORING PROGRAM REVIEWED*: Not Applicable *COPY OF PRESCRIPTION DRUG MONITORING REPORT IN PATIENT BERTHA: Not Applicable Prescriptions/Med Rec: Cefdinir 300 mg PO BID #14 capsule Home Medications: Home Meds Alendronate Sodium [Fosamax] 70 mg PO Q7D 02/24/18 [History] Cetirizine [ZyrTEC] 10 mg PO DAILY 02/24/18 [History] DULoxetine [Cymbalta] 90 mg PO DAILY 02/24/18 [History] Ferrous Sulfate 325 mg PO BID 02/24/18 [History] Levothyroxine [Synthroid] 88 mcg PO ACBREAKFAST 02/24/18 [History] Magnesium Oxide [Magnesium] 1 tab PO BID 02/24/18 [History] Multivitamin-Min/Iron/FA/Vit K [Multi-Day Plus Minerals Tablet] 1 each PO DAILY 02/24/18 [History] [place]-3/DHA/Epa/Fish Oil [[place]-3 Fish Oil 1,200 MG Sfgl] 1,200 mg PO DAILY 04/13 [History] OLANZapine [Olanzapine] 2.5 mg PO DAILY 01/12/19 [History] Triamcinolone Acetonide [Triamcinolone Acetonide 0.1% Crm] 1 g TOP BEDTIME 02/11 [History] Cefdinir 300 mg PO BID #14 capsule 02/12/19 [Rx] Oxygen Therapy Mode: Room Air Patient Handouts: Cellulitis, Adult, [id number], Cefdinir capsules Referrals: Vic Beaver MD [Primary Care Provider] - (1 week - f/u hospital stay for cellulitis ) - Discharge Summary/Plan Comment DC Time >30 min.: No - Patient Data Vitals - Most Recent: Last Vital Signs Temp 36.4 C 02/12/19 10:35 Pulse 66 02/12/19 10:35 Resp 18 02/12/19 10:35 BP 98/53 L 02/12/19 10:35 Pulse Ox 97 02/12/19 10:35 Weight - Most Recent: 52.072 kg I&O - Last 24 hours: Intake & Output 02/11/19 02/12/19 02/12/19 22:59 06:59 14:59 Intake Total 410 Balance 410 Lab Results - Last 24 hrs: Laboratory Results - last 24 hr 02/12/19 02/12/19 Range/Units 05:39 05:39 WBC 7.5 (4.5-11.0) K/uL RBC 2.75 L (3.30-5.50) M/uL Hgb 8.6 L (12.0-15.0) g/dL Hct 27.4 L (36.0-48.0) % MCV 100 H (80-98) fL MCH 31 (27-31) pg MCHC 31 L (32-36) % Plt Count 212 (150-400) K/uL Sodium 140 (140-148) mmol/L Potassium 4.1 (3.6-5.2) mmol/L Chloride 110 H (100-108) mmol/L Carbon Dioxide 21 (21-32) mmol/L Anion Gap 13.1 (5.0-14.0) mmol/L BUN 19 H (7-18) mg/dL Creatinine 1.2 H (0.6-1.0) mg/dL Est Cr Clr Drug Dosing 37.15 mL/min Estimated GFR (MDRD) 46 L (>60) Glucose 107 H (74-106) mg/dL Calcium 7.3 L (8.5-10.1) mg/dL TYLER Results - Last 24 hrs: Microbiology 02/10/19 11:50 Aerobic Blood Culture - Preliminary Blood - Arm, Left NO GROWTH AFTER 1 DAY Anaerobic Blood Culture - Preliminary NO GROWTH AFTER 1 DAY 02/10/19 12:00 Aerobic Blood Culture - Preliminary Blood - Arm, Right NO GROWTH AFTER 1 DAY Anaerobic Blood Culture - Preliminary NO GROWTH AFTER 1 DAY Med Orders - Current: Current Medications Acetaminophen (Tylenol) 650 mg PO Q4H PRN PRN Reason: Pain (Mild 1-3)/fever Last Admin: 02/11/19 20:27 Dose: 650 mg Albuterol (Proventil Neb Soln) 2.5 mg NEB Q4H PRN PRN Reason: Shortness Of Breath/wheezing Cetirizine HCl (Zyrtec) 10 mg PO DAILY [facility] Last Admin: 02/12/19 08:28 Dose: 10 mg Duloxetine HCl (Cymbalta) 90 mg PO DAILY [facility] Last Admin: 02/12/19 08:28 Dose: 90 mg Ceftriaxone Sodium 1 gm/ (Sodium Chloride) 50 mls @ 100 mls/hr IV Q24H [facility] Last Admin: 02/11/19 13:21 Dose: 100 mls/hr Ibuprofen (Motrin) 600 mg PO Q6H PRN PRN Reason: Mild Pain(1-3)/Fever Last Admin: 02/10/19 20:16 Dose: 600 mg Lactobacillus Rhamnosus (Culturelle) 1 cap PO BID [facility] Last Admin: 02/12/19 08:28 Dose: 1 cap Levothyroxine Sodium (Synthroid) 88 mcg PO ACBREAKFAST [facility] Last Admin: 02/12/19 08:28 Dose: 88 mcg Magnesium Hydroxide (Milk Of Magnesia) 30 ml PO Q12H PRN PRN Reason: Constipation Magnesium Oxide (Magnesium Oxide) 400 mg PO BID [facility] Last Admin: 02/12/19 08:28 Dose: 400 mg Melatonin (Melatonin) 9 mg PO BEDTIME [facility] Last Admin: 02/11/19 20:20 Dose: 9 mg Olanzapine (Zyprexa) 2.5 mg PO DAILY [facility] Last Admin: 02/12/19 08:29 Dose: 2.5 mg Ondansetron HCl (Zofran Odt) 4 mg PO Q6H PRN PRN Reason: Nausea able to take PO Ondansetron HCl (Zofran) 4 mg IV Q6H PRN PRN Reason: Nausea/Vomiting Senna/Docusate Sodium (Senna Plus) 1 tab PO BID PRN PRN Reason: Constipation Triamcinolone Acetonide (Triamcinolone Acetonide 0.1% Crm) 0 gm TOP BEDTIME [facility] Last Admin: 02/11/19 20:20 Dose: 1 applic Discontinued Medications Sodium Chloride (Normal Saline) 1,000 mls @ 125 mls/hr IV ASDIRECTED [facility] Last Admin: 02/11/19 07:47 Dose: 125 mls/hr Sodium Chloride (Normal Saline) 1,000 mls @ 999 mls/hr IV .BOLUS [facility] Stop: 02/10/19 13:16 Last Admin: 02/10/19 17:28 Dose: 999 mls/hr Sodium Chloride (Normal Saline) 1,000 mls @ 500 mls/hr IV .BOLUS ONE Stop: 02/10/19 19:59 Last Admin: 02/10/19 18:00 Dose: 500 mls/hr - Exam Quality Assessment: Denies: Supplemental Oxygen General: Reports: Alert, Cooperative, No Acute Distress Lungs: Reports: Normal Respiratory Effort GI/Abdominal Exam: Soft, No Distention Extremities: No Pedal Edema Skin: Reports: Warm, Dry, Rash (Erythema over the lower lateral portion of the right thigh) Psy/Mental Status: Reports: Alert, Normal Affect
[2019-02-12] MEDS: cefTRIAXone 1 GM in Sodium Chloride 0.9% 50 ML IV SCH (12:52)
[2019-02-12 15:01] VITALS: BP 96/62; PULSE 68
== END 2019-02-12 16:05 | disposition home or self-care (01) | DRG 603 ==
LOC: JP.ED 11:03 → EDSTATUS 11:17 → JP.MS 11:18
PROVIDERS: ADMIT Internal Medicine; ATTEND Internal Medicine
DX: L03.115 Cellulitis of right lower limb (principal); N17.9 Acute kidney failure, unspecified; F05 Delirium due to known physiological condition; H54.7 Unspecified visual loss; G47.30 Sleep apnea, unspecified; M81.0 Age-related osteoporosis without current pathological fracture; F41.9 Anxiety disorder, unspecified; E03.9 Hypothyroidism, unspecified; F42.8 Other obsessive-compulsive disorder; L40.9 Psoriasis, unspecified; Q90.9 Down syndrome, unspecified; Z87.440 Personal history of urinary (tract) infections; Z79.899 Other long term (current) drug therapy; Z88.8 Allergy status to other drugs, medicaments and biological substances; Z79.890 Hormone replacement therapy
CPT/HCPCS: 36415; 80048; 80053; 81001; 83605; 85025; 85027; 87040; A9270-GY; J0696; J7030; J7050

== ENCOUNTER 2020-12-04 09:26 | Emergency (ER) | payer MEDICARE, MEDICAID ==
[2020-12-04 09:39] VITALS: BP 140/59; PULSE 58
[2020-12-04] MEDS ORDERED: Acetaminophen 325 MG Tab PO ONE (09:52)
--- NOTE | 2020-12-04 09:57 | EDM.PDOC ---
ED HPI GENERAL MEDICAL PROBLEM - General Chief Complaint: Back Pain or Injury Stated Complaint: HURT BACK, AND DIZZY Time Seen by Provider: 12/04/20 09:40 Source of Information: Reports: Patient, Old Records, RN, Other (critical care specialist) History Limitations: Reports: Other (patient not a good historian) - History of Present Illness INITIAL COMMENTS - FREE TEXT/NARRATIVE: 60 yo female with Down's Syndrome presents with low back pain presumably from falling out of bed earlier this AM. No tx prior to arrival. Lives in an assisted living facility. No other areas of pain. Onset: Today, Sudden Onset Date: 12/04/20 Duration: Hour(s):, Constant Location: Reports: Back Quality: Reports: Ache Severity: Moderate Improves with: Reports: Rest Worsens with: Reports: Movement Context: Reports: Trauma Associated Symptoms: Reports: No Other Symptoms Treatments [employer]: Reports: Other (see below) (none) - Related Data Allergies Allergy/AdvReac Type Severity Reaction Status Date / Time quinine Allergy Severe Airway Verified 05/18/18 09:40 Tightness pollen extracts Allergy Difficulty Verified 01/12/19 19:29 Breathing Home Meds: Home Meds Alendronate Sodium [Fosamax] 70 mg PO Q7D 02/24/18 [History] Cetirizine [ZyrTEC] 10 mg PO DAILY 02/24/18 [History] DULoxetine [Cymbalta] 90 mg PO DAILY 02/24/18 [History] Ferrous Sulfate 325 mg PO BID 02/24/18 [History] Levothyroxine [Synthroid] 100 mcg PO ACBREAKFAST 02/24/18 [History] Magnesium Oxide [Magnesium] 1 tab PO BID 02/24/18 [History] Multivitamin-Min/Iron/FA/Vit K [Multi-Day Plus Minerals Tablet] 1 each PO DAILY 02/24/18 [History] [place]-3/DHA/Epa/Fish Oil [[place]-3 Fish Oil 1,200 MG Sfgl] 1,200 mg PO DAILY 02/24/18 [History] Triamcinolone Acetonide [Triamcinolone Acetonide 0.1% Crm] 1 g TOP BEDTIME 02/11/19 [History] Past Medical History HEENT History: Reports: Impaired Vision Other Respiratory History: Sleep apnea Musculoskeletal History: Reports: Osteoporosis Neurological History: Reports: Other (See Below) Other Neuro History: Obsessive slowness disorder, Downs Syndrome Psychiatric History: Reports: Anxiety, Developmental Delay Endocrine/Metabolic History: Reports: Hypothyroidism Other Endocrine/Metabolic History: Low bone density Dermatologic History: Reports: Psoriasis Other Dermatologic History: Psoriasis - Infectious Disease History Infectious Disease History: Reports: Chicken Pox - Past Surgical History Musculoskeletal Surgical History: Reports: Other (See Below) Other Musculoskeletal Surgeries/Procedures:: Restless leg syndrome Social & Family History - Tobacco Use Tobacco Use Status *Q: Never Tobacco User - Caffeine Use Caffeine Use: Reports: Soda ED ROS GENERAL - Review of Systems Review Of Systems: See Below Constitutional: Reports: No Symptoms HEENT: Reports: No Symptoms Respiratory: Reports: No Symptoms Cardiovascular: Reports: No Symptoms GI/Abdominal: Reports: No Symptoms : Reports: No Symptoms Musculoskeletal: Reports: Back Pain Skin: Reports: Erythema (to area of her back that was impacted) Neurological: Reports: No Symptoms ED EXAM,LOWER BACK PAIN/INJURY - Physical Exam Exam: See Below Exam Limited By: No Limitations General Appearance: Alert, WD/WN, No Apparent Distress Back Exam: Normal Inspection, Vertebral Tenderness (higher lumbar area) Neurological: Alert, CN II-XII Intact, No Motor/Sensory Deficits Psychiatric: Normal Affect, Normal Mood Skin Exam: Warm, Dry, Intact, No Rash, Erythema (small area of redness over the upper lumbar spine) Course - Vital Signs Last Recorded V/S: Last Vital Signs Temp 35.9 C L 12/04/20 09:38 Pulse 58 L 12/04/20 09:38 Resp 16 12/04/20 09:38 BP 140/59 L 12/04/20 09:38 Pulse Ox 99 12/04/20 09:38 - Orders/Labs/Meds Orders: Active Orders 24 hr Category Date Time Status Lumbar Spine 2 or 3V [CR] Stat Exams 12/04/20 09:52 Taken Meds: Medications Discontinued Medications Generic Name Dose Route Start Last Admin Trade Name Billyq PRN Reason Stop Dose Admin Acetaminophen 650 mg 12/04/20 09:52 12/04/20 10:37 Acetaminophen 325 Mg Tab PO 12/04/20 09:53 650 mg NOW ONE Administration - Radiology Interpretation Free Text/Narrative:: lumbar X-ray-degen changes only Departure - Departure Time of Disposition: 10:40 Disposition: Home, Self-Care 01 Condition: Fair Clinical Impression: Back contusion Qualifiers: Encounter type: initial encounter Laterality: unspecified laterality Qualified Code(s): S20.229A - Contusion of unspecified back wall of thorax, initial encounter - Discharge Information *PRESCRIPTION DRUG MONITORING PROGRAM REVIEWED*: Not Applicable *COPY OF PRESCRIPTION DRUG MONITORING REPORT IN PATIENT BERTHA: Not Applicable Instructions: Contusion, [id number] Referrals: Vic Beaver MD [Primary Care Provider] - Forms: ED Department Discharge Additional Instructions: Acetaminophen for pain control. Rest today. Recheck as needed. Sepsis Event Note (ED) - Focused Exam Vital Signs: Vital Signs Temp Pulse Resp BP Pulse Ox 12/04/20 09:38 35.9 C L 58 L 16 140/59 L 99 - My Orders Last 24 Hours: My Active Orders 12/04/20 09:52 Lumbar Spine 2 or 3V [CR] Stat - Assessment/Plan Last 24 Hours: My Active Orders 12/04/20 09:52 Lumbar Spine 2 or 3V [CR] Stat
--- NOTE | 2020-12-04 11:19 | CR ---
Lumbar Spine 2 or 3V CLINICAL HISTORY: Fall, back pain FINDINGS: There is a moderate levorotoscoliosis. The vertebral body heights are maintained. There is moderate diffuse degenerative disc disease most notable at L2-3 and L4-5. There is a grade 1 anterolisthesis of L4 on L5 which is likely related to moderate facet disease seen in the lower lumbar spine. IMPRESSION: Diffuse degenerative disc disease Moderate facet disease in the low lumbar spine Levorotoscoliosis Grade 1 anterolisthesis L4 and L5
== END 2020-12-04 11:00 | disposition home or self-care (01) ==
LOC: JP.ED 09:26
DX: S30.0XXA Contusion of lower back and pelvis, initial encounter (principal); E03.9 Hypothyroidism, unspecified; Z91.048 Other nonmedicinal substance allergy status; Z79.899 Other long term (current) drug therapy; W06.XXXA Fall from bed, initial encounter
CPT/HCPCS: 72100; 99283; A9270

== ENCOUNTER 2024-10-07 10:58 | Emergency (ER) | payer MEDICARE, MEDICAID ==
[2024-10-07] MEDS ORDERED: Naloxone 0.4 MG/ML SDV IVPUSH PRN (11:06)
[2024-10-07 11:23] LABS: BASOPHILS ABSOLUTE AUTO 0.06 K/uL (0.00-0.10); BASOPHILS PERCENT AUTO 0.5 % (0.1-1.3); EOSINOPHILS ABSOLUTE AUTO 0.03 K/uL (0.00-0.40); EOSINOPHILS PERCENT AUTO 0.2 % (0.0-5.4); IMMATURE GRAN ABSOLUTE AUTO 0.17 K/uL (0.00-0.23); IMMATURE GRAN PERCENT AUTO 1.3 % (0.0-0.7); LYMPHOCYTES ABSOLUTE AUTO 1.07 K/uL (0.8-3.3); LYMPHOCYTES PERCENT AUTO 8.3 % (11.4-47.7); MONOCYTES ABSOLUTE AUTO 1.25 K/uL (0.20-0.90); MONOCYTES PERCENT AUTO 9.7 % (3.3-12.6); NEUTROPHILS ABSOLUTE AUTO 10.29 K/uL (1.0-7.6); NEUTROPHILS PERCENT AUTO 80.0 % (40.0-78.1); PLATELET COUNT,PLT 422 K/uL (130-375); RED BLOOD CELL COUNT 2.45 M/uL (3.77-5.24); WHITE BLOOD CELL COUNT,WBC 12.9 K/uL (3.2-11.0)
[2024-10-07 11:52] LABS: A/G RATIO 0.5 (1.2-2.2); ALANINE AMINOTRANSFERASE,ALT 37 U/L (12-78); ASPARTATE AMNIOTRANSFERASE,AST 42 U/L (15-37); BILIRUBIN TOTAL 0.3 mg/dL (0.2-1.0); BLOOD UREA NITROGEN,BUN 26 mg/dL (7-18); CARBON DIOXIDE,CO2 30 mmol/L (21-32); CHLORIDE,CL 108 mmol/L (100-108); CREATININE 1.0 mg/dL (0.6-1.0); ESTIMATED GFR 64 mL/min (>60); GLUCOSE RANDOM 114 mg/dL (74-106); POTASSIUM,K 4.7 mmol/L (3.6-5.2); PROTEIN TOTAL,TP 6.0 g/dL (6.4-8.2); SODIUM,NA 143 mmol/L (140-148); TSH ULTRASENSITIVE 29.439 uIU/mL (0.358-3.740)
[2024-10-07 12:02] VITALS: BP 95/52
[2024-10-07] MEDS ORDERED: Propofol 200 MG/20 ML SDV ONE (12:03)
[2024-10-07 12:07] VITALS: PULSE 78
== END 2024-10-07 13:20 | disposition home or self-care (01) ==
LOC: JP.ED 10:58
DX: S73.004A Unspecified dislocation of right hip, initial encounter (principal); E03.9 Hypothyroidism, unspecified; Z79.899 Other long term (current) drug therapy; Z88.8 Allergy status to other drugs, medicaments and biological substances; Z79.82 Long term (current) use of aspirin; Z79.890 Hormone replacement therapy; X58.XXXA Exposure to other specified factors, initial encounter; M16.12 Unilateral primary osteoarthritis, left hip; M85.88 Other specified disorders of bone density and structure, other site; Z96.641 Presence of right artificial hip joint
CPT/HCPCS: 01200; 27250; 36415; 72170; 73501; 80053; 83735; 84443; 85025; 96374; 99283; J2704; J7030; 73502-26-RT; 73502-RT; J1171

== ENCOUNTER 2024-10-27 17:17 | Emergency (ER) | payer MEDICARE, MEDICAID ==
[2024-10-27 17:44] VITALS: PULSE 69
[2024-10-27 18:21] LABS: PLATELET COUNT,PLT 354 K/uL (130-375); RED BLOOD CELL COUNT 2.74 M/uL (3.77-5.24); WHITE BLOOD CELL COUNT,WBC 5.9 K/uL (3.2-11.0)
[2024-10-27 18:41] LABS: A/G RATIO 0.6 (1.2-2.2); ALANINE AMINOTRANSFERASE,ALT 30 U/L (12-78); ASPARTATE AMNIOTRANSFERASE,AST 30 U/L (15-37); BILIRUBIN TOTAL 0.2 mg/dL (0.2-1.0); BLOOD UREA NITROGEN,BUN 19 mg/dL (7-18); CARBON DIOXIDE,CO2 29 mmol/L (21-32); CHLORIDE,CL 107 mmol/L (100-108); CREATININE 0.8 mg/dL (0.6-1.0); EST CRCL DRUG DOSING (CG) 37.59 mL/min; ESTIMATED GFR 83 mL/min (>60); GLUCOSE RANDOM 97 mg/dL (74-106); POTASSIUM,K 4.1 mmol/L (3.6-5.2); PROTEIN TOTAL,TP 6.4 g/dL (6.4-8.2); SODIUM,NA 142 mmol/L (140-148)
[2024-10-27 18:53] LABS: ATYPICAL LYMPHOCYTES MODERATE; BAND ABSOLUTE MAN 0.12 K/uL; BAND PERCENT MAN 2 % (5-11); EOSINOPHILS ABSOLUTE MAN 0.06 K/uL (0.00-0.40); EOSINOPHILS PERCENT MAN 1 % (2-4); LYMPHOCYTES ABSOLUTE MAN 1.06 K/uL (0.8-3.3); LYMPHOCYTES PERCENT MAN 18 % (24-44); MONOCYTES ABSOLUTE MAN 0.18 K/uL (0.20-0.90); MONOCYTES PERCENT MAN 3 % (2-6); NEUTROPHILS ABSOLUTE MAN 4.48 K/uL (1.0-7.6); SEG NEUTROPHILS PERCENT MAN 76 % (36-66)
[2024-10-27 19:47] VITALS: BP 115/80
== END 2024-10-27 20:31 | disposition home or self-care (01) ==
LOC: JP.ED 17:17
DX: G89.18 Other acute postprocedural pain (principal); M25.551 Pain in right hip; E03.9 Hypothyroidism, unspecified; Z96.641 Presence of right artificial hip joint; Z91.018 Allergy to other foods; Z88.8 Allergy status to other drugs, medicaments and biological substances; Z79.82 Long term (current) use of aspirin; Z79.899 Other long term (current) drug therapy
CPT/HCPCS: 36415; 73502-26-RT; 73502-RT; 80053; 85025; 99283